=== PATIENT | male | born 1965 | race Hispanic/Latino ===

== ENCOUNTER 2018-07-21 15:03 | Inpatient (IN) | payer MEDICAID ==
[2018-07-21 15:04] VITALS: BMI 23.6
[2018-07-21 16:18] LABS: BASO % 0.3 % (0.0-2.0); EOS # 0.1 K/uL (0.0-0.7); EOS % 0.5 % (0.0-4.0); HEMOGLOBIN 13.6 g/dL (12.0-18.0); LYMPH % 8.3 % (20.0-40.0); MEAN CELL VOLUME 93.8 fL (80.0-94.0); MEAN CORPUSCULAR HEMOGLOBIN 31.4 pg (27.0-31.0); MEAN CORPUSCULAR HGB CONC 33.5 g/dL (33.0-37.0); MEAN PLATELET VOLUME 7.5 fL (7.2-11.7); MONO # 1.3 K/uL (0.0-0.8); MONO % 10.9 % (0.0-10.0); NEUT # 9.3 K/uL (1.8-7.0); NRBC % 0.1 % (0.0-2.0); PLATELET COUNT 295 K/uL (130-400); RBC 4.32 Mil/uL (4.40-5.90); RED CELL DISTRIBUTION WIDTH 14.1 % (11.5-14.5); WHITE BLOOD COUNT 11.6 K/uL (4.8-10.8)
[2018-07-21 16:37] LABS: URINE BILIRUBIN NEGATIVE (NEGATIVE); URINE BLOOD NEGATIVE (NEGATIVE); URINE CLARITY Clear (Clear); URINE COLOR Yellow (YELLOW); URINE GLUCOSE (UA) NORMAL (Normal); URINE LEUKOCYTE ESTERASE NEG Leu/uL (Negative); URINE PROTEIN NEGATIVE (NEGATIVE); URINE UROBILINOGEN NORMAL mg/dL (0.2-1.0)
[2018-07-21 17:01] LABS: ALB/GLOB RATIO 1.5 (1.0-2.1); ALBUMIN 4.1 g/dL (3.5-5.0); ALT/SGPT 21 U/L (21-72); AST/SGOT 34 U/L (17-59); BLOOD UREA NITROGEN 15 mg/dL (9-20); CALCIUM 9.2 mg/dl (8.6-10.4); GFR NON-AFRICAN AMERICAN > 60
[2018-07-21 17:12] LABS: BARBITURATES, UR NEGATIVE (NEGATIVE); BENZODIAZEPINES, UR NEGATIVE (NEGATIVE); OPIATES, UR NEGATIVE (NEGATIVE); PHENCYCLIDINE, UR NEGATIVE (NEGATIVE)
--- NOTE | 2018-07-21 17:14 | C.PDOC ---
History Of Present Illness Patient is a 52 year old male who presents to the ED requesting detox from alcohol. Patient reports that he was in rehab for 4 months and after he got out he was drinking continuously for the past 2 days and stopped this morning. He reports that he is in withdrawal, shaky and anxious and having suicidal ideation. Patient also states that for the past 6 or 7 years he has had occasional numbness on the left side of his face. He denies HI or other medical complaints at the present moment. Time Seen by Provider: 07/21/18 15:24 Chief Complaint (Nursing): Substance Abuse History Per: Patient History/Exam Limitations: no limitations Current Symptoms Are (Timing): Still Present Suicide/Self Injury Attempted (Context): None Modifying Factor(s): Alcohol Associated Symptoms: Suicidal Thoughts Involuntary Hold By: None Recent travel outside of the [place]: No Additional History Per: Patient Past Medical History Reviewed: Historical Data, Nursing Documentation, Vital Signs Vital Signs: Last Vital Signs Temp 98.1 F 07/21/18 15:12 Pulse 77 07/21/18 16:34 Resp 18 07/21/18 16:34 BP 206/118 H 07/21/18 16:34 Pulse Ox 100 07/21/18 16:34 - Medical History PMH: Anxiety, Depression, Fractures (Right hip/hand and facial fracture due to fall), HTN, Pneumonia, TIA Denies: Alzheimer's Disease, Anemia, Arthritis, Asthma, Bipolar Disorder, Bronchitis, Cardia Arrhythmia, CHF, COPD, Crohn's Disease, Dementia, Diverticulitis, Emphysema, Fibromyalgia, Gastrointestinal Ulcer, Gall Bladder Disease, HIV, Hypercholesterolemia, Hyperthyroidism, Hypothyroidism, Kidney Stones, Migraine, Mitral Valve Prolapse, Osteoporosis, Pancreatitis, Paranoia, Parkinson's Disease, Peripheral Edema, Post Traumatic Stress Disorder, Chronic Kidney Disease, Schizophrenia, Seizures, Sickle Cell Disease, Sexually T ransmitted Disease, Sleep Apnea Surgical History: Denies: Appendectomy, Cholecystectomy, Coronary Stent, Pacemaker - [facility] Procedures (02/03/18) INJECT/INFUSE NEC (09/25/12) TETANUS TOXOID ADMINIST (04/01/04) VACCINATION NEC (11/23/13) Family History: States: No Known Family Hx - Social History Hx Tobacco Use: No Hx Alcohol Use: Yes (DRINKS DAILY PINT OF VODKA.LAST DRANK YESTERDAY PINT OF VODKA) Hx Substance Use: No - Immunization History Hx Tetanus Toxoid Vaccination: No Hx Influenza Vaccination: Yes Hx Pneumococcal Vaccination: No Review Of Systems Constitutional: Positive for: Other (tremors, anxious ). Negative for: Fever Cardiovascular: Negative for: Chest Pain Respiratory: Negative for: Shortness of Breath Gastrointestinal: Negative for: Vomiting, Abdominal Pain Neurological: Positive for: Other (facial numbness for the past 6/7 years) Psych: Positive for: Suicidal ideation. Negative for: Other (homicidal ideation or hallucinations ) Physical Exam - Physical Exam Appears: Non-toxic, Other ( hand tremors ) Skin: Diaphoretic Head: Atraumatic, Normacephalic Eye(s): bilateral: PERRL, EOMI Tongue: Other (tongue fasciculation) Chest: Symmetrical, No Deformity Cardiovascular: Rhythm Regular, No Murmur Respiratory: Normal Breath Sounds, No Rales, No Rhonchi, No Wheezing Gastrointestinal/Abdominal: Soft, No Tenderness Extremity: Normal ROM Neurological/Psych: Other (awake and alert) ED Course And Treatment - Laboratory Results Result Diagrams: 07/21/18 16:12 07/21/18 16:12 Lab Results: Total Bilirubin 1.0 mg/dL (0.2-1.3) 07/21/18 16:12 AST 34 U/L (17-59) 07/21/18 16:12 ALT 21 U/L (21-72) 07/21/18 16:12 Alkaline Phosphatase 76 U/L (38-126) 07/21/18 16:12 Total Protein 6.7 g/dL (6.3-8.3) 07/21/18 16:12 Albumin 4.1 g/dL (3.5-5.0) 07/21/18 16:12 Globulin 2.6 gm/dL (2.2-3.9) 07/21/18 16:12 Albumin/Globulin Ratio 1.5 (1.0-2.1) 07/21/18 16:12 ECG: Interpreted By Me, Viewed By Me ECG Rhythm: Sinus Rhythm Interpretation Of ECG: Normal axis, normals intervals, no ST elevations Rate From EC O2 Sat by Pulse Oximetry: 100 (on RA) Pulse Ox Interpretation: Normal Medical Decision Making Medical Decision Making: Patient given 2mg ativan PO for EtOH withdrawal symptoms. Patient medically cleared and evaluated by crisis. Accepted by Dr. Martell for psych admission, dx: depression. Home doses of amlodipine and lisinopril given for HTN. On re-eval BP 138/85. Disposition - Disposition Disposition Time: 21:04 Condition: STABLE - Clinical Impression Clinical Impression: Alcohol abuse, Depression - Scribe Statement The provider has reviewed the documentation as recorded by the Jemalibobi Jean All medical record entries made by the Jemalibe were at my direction and personally dictated by me. I have reviewed the chart and agree that the record accurately reflects my personal performance of the history, physical exam, medical decision making, and the department course for this patient. I have also personally directed, reviewed, and agree with the discharge instructions and disposition.
[2018-07-21 20:08] LABS: BANDS 1 % (0-2); LYMPHOCYTE 8 % (20-40); MONOCYTE 10 % (0-10); NEUTROPHIL 81 % (50-75); PLATELET ESTIMATE NORMAL (NORMAL); TOTAL CELLS COUNTED 100
[2018-07-21] MEDS ORDERED: Aluminum Hydroxide/Magnesium Hydroxide Susp (30 mL) PO PRN (22:12)
--- NOTE | 2018-07-21 23:10 | PCM.BM ---
<Janel Ramirez - Last Filed: 07/21/18 23:07> Treatment Plan Problems - Problems identified on initial assessmt Knowledge deficit : Alcohol Use Date Initiated: 07/21/18 Time Initiated: 21:30 Assessment reference: NA Status: Active Suicidal Ideation Date Initiated: 07/21/18 Time Initiated: 21:30 Assessment reference: NA Status: Active Treatment assets and liabiliti Patient Assests: ADL independent Patient Liabilities: substance abuse (Alcohol), medical problems (Hypertension) - Milieu Protocol Maintain good personal hygiene: daily Encourage regular showers, daily Remind patient to perform daily oral care, every shift Assist patient to perform ADL's Conduct patient checks and document Observation sheet: Q15 minutes Maintain personal safety: every shift Educate patient to report safety concerns to staff, every shift Monitor environment for contraband/sharps Medication safety: Monitor for expected outcome, potential side effects: every shift, Assess barriers to learning: every shift, Assess readiness for medication education: every shift <Maodnna Ozuna - Last Filed: 07/22/18 12:54> Family Contact Family involvement: Patient does not wish Family/SO involvement Family contact: Patient declines to allow family contact at present - Goals for Treatment Patient goals for treatment: "I want to go to rehab." Discharge/Continuing Care - Education Needs Education Needs: Patient Medication, Patient Diagnosis/Disease Process, Patient Coping Skills, Patient Placement options, Patient Community resources - Discharge Discharge Criteria: Free of Suicidal thoughts, Normal sleep pattern, Ability to care for self, No longer exhibiting s/s of withdrawal, Reduction of target sym ptoms Discharge to:: Substance Abuse Rehab - Treatment Team Participation Discussed with Family/SO: No Was Patient/Family/SO present at Treatment Team Meeting: Yes <Eduardo Camilo - Last Filed: 07/28/18 22:23> - Diagnosis (1) Major depressive disorder, recurrent, severe with psychotic features Status: Acute Interventions: 07/28/18 22:23 * Assess/adjust medications daily and /or as needed * See patient on an individual basis 7x/week to assess level of manic behaviors and stability * Discuss risks, benefits, side effects and alternatives of medications (2) Alcohol use disorder, severe, dependence Status: Acute Interventions: 07/28/18 22:23 * Assess 7x/week regarding severity of withdrawal * Educate regarding risks, benefits, side effects and alternatives of medications * Use Motivational Interviewing for abstinence * Use CBT for relapse prevention * Medication management for withdrawal symptoms * Encourage medication assisted treatment
[2018-07-22] MEDS: Multiple Vitamins Tab PO SCH (09:26)
--- NOTE | 2018-07-22 10:08 | PCM.PSYCH ---
Initial Psychiatric Evaluation - Initial Psychiatric Evaluation Type of Admission: Voluntary Legal Status: Capacity Chief Complaint (in patient's own words): I was feeling depressed and suicidal History of Present Illness and Precipitating Events: Patient is a 52 y/o single male, currently homeless, used to live with ex- in [facility], came to the [facility] because of depressed mood, auditory hallucinations and suicidal ideation. Patient denies any past history of any inpatient psychiatric hospitalizations and denies any history of follow-up with a psychiatrist. He was brought in to the ED by friend from , after going on a " two day drinking binge", per patient. States that he drank 6-10 pints of vodka yesterday. Pt has been to rehab in the past and was recently discharged from a facility in [facility]. States that he has been in rehab for the past 4 months. He states that he went home to [place] for work after being discharged from the rehab facility and then relapsed. When leaving the rehab facility, pt states that he had plans to reconcile with his life and resume work, " but those plans went out of the window" one he got there. Reports that he felt paranoid at work, stating that he felt people were "trying to get even with him on the job. " While on the binge, he lost his wallet, bag, and glasses. States that last night he had " shakes" after not drinking. He has been felling down an depressed for a few days, with last night and this morning being the worst.Reports hearing voices telling him to hurt himself and that he would be better off . He reports feeling like he has a "dark cloud" over his head and following him. Pt also reports seeing shadows. States that he only time that he is happy is when he is asleep.Reports getting into fights in the past, but states that he hasn't fought with anyone for one month. He reports depressed mood, feelings of hopelessness, helplessness and worthlessness. He reports poor sleep and poor appetite. She reports withdrawal symptoms including shakes, anxiety, headaches and sweating. He reports auditory and visual hallucinations and suicidal ideation, however he denies any homicidal ideation. Past medical history HTN Current Medications: Active Medications Generic Name Dose Route Start Last Admin Trade Name Freq PRN Reason Stop Dose Admin Al Hydrox/Mg Hydrox/Simethicone 30 ml 07/21/18 22:12 Maalox 30 Ml PO TID PRN Indigestion / Heartburn Amlodipine Besylate 10 mg 07/22/18 10:00 07/22/18 09:26 Norvasc PO 10 mg DAILY WENDY Administration Chlordiazepoxide 25 mg 07/22/18 00:00 07/22/18 06:22 Librium PO 07/25/18 23:59 25 mg Q6 WENDY Administration Taper Chlordiazepoxide 25 mg 07/21/18 22:11 07/21/18 22:36 Librium PO 25 mg Q4H PRN Administration Alcohol Withdrawal Clonidine HCl 0.1 mg 07/21/18 22:11 Catapres PO Q4H PRN Symptoms of alcohol withdrawl Dicyclomine HCl 10 mg 07/21/18 22:12 Bentyl PO Q6 PRN Muscle spasm Folic Acid 1 mg 07/22/18 10:00 07/22/18 09:26 Folic Acid PO 1 mg DAILY WENDY Administration Lisinopril 40 mg 07/22/18 10:00 07/22/18 09:25 Zestril PO 40 mg DAILY WENDY Administration Loperamide HCl 2 mg 07/21/18 22:12 Imodium PO Q8 PRN Diarrhea Multivitamins 1 tab 07/22/18 10:00 07/22/18 09:26 Hexavitamin PO 1 tab DAILY WENDY Administration Ondansetron HCl 4 mg 07/21/18 22:12 Zofran Tab PO Q8 PRN Nausea/Vomiting Pneumococcal Polyvalent Vaccine 0.5 ml 07/24/18 22:00 Pneumovax 23 Vaccine IM 07/24/18 22:01 .ONCE ONE Pseudoephedrine HCl 60 mg 07/21/18 22:12 Sudafed Tab PO QID PRN Nasal/Sinus Congestion Thiamine HCl 100 mg 07/22/18 10:00 07/22/18 09:26 Vitamin B1 Tab PO 100 mg DAILY WENDY Administration Trazodone HCl 50 mg 07/21/18 22:11 07/21/18 22:37 Desyrel PO 50 mg HS PRN Administration Insomnia Past Psychiatric History - Past Psychiatric History Previous Treatment History: None Pertinent Medical Hx (Current Medical&Sleep Prob, Allergies): Allergies Allergy/AdvReac Type Severity Reaction Status Date / Time coconut Allergy RASH Verified 07/21/18 15:20 coconut oil Allergy RASH Verified 07/21/18 15:20 cranberry Allergy SWELLING Verified 07/21/18 15:20 Lisinopril [Zestril] 40 mg PO DAILY 07/21/18 amLODIPine [Norvasc] 10 mg PO DAILY 07/21/18 Review of Systems - Review of Systems All systems: reviewed and no additional remarkable complaints except - Psychiatric Psychiatric: Anxiety, Auditory Hallucinations, Irritability, Suicidal Ideation Mental Status Examination - Personal Presentation Personal Presentation: Looks stated age - Affect Affect: Constricted, Depressed - Motor Activity Motor Activity: Psychomotor Retardation - Reliability in Providing Information Reliability in Providing Information: Poor, due to altered mood - Speech Speech: Organized - Mood Mood: Depressed, Anxious - Formal Thought Process Formal Thought Process: Hallucinations, Delusions, Paranoia, Loosening of associations - Hallucinations/Delusions Hallucinations: Visual, Auditory Delusions: Persecution - Obsessions/Compulsions Obsessions: No Compulsions: No - Cognitive Functions Orientation: Person, Place, Situation, Time Sensorium: Alert Attention/Concentration: Attentive Abstract Thinking: [place] Estimate of Intelligence: Below average Judgement: Imparied, as evidence by: Poor judgement, Imparied, as evidence by: Lack of insight into illness - Risk Risk: Suicidal, Withdrawal, Diminished functioning - Limitations Limitations: Living alone DSM 5 DX - DSM 5 DSM 5 Diagnosis: Major depressive disorder recurrent severe with psychotic features Alcohol use disorder severe Alcohol withdrawal - Recommended/Plan of Treatment Treatment Recommendations and Plan of Treatment: Major depressive disorder recurrent severe with psychotic features Alcohol use disorder severe Alcohol withdrawal HTN CBT Separation Supportive therapy and group therapy Trazodone for insomnia Zoloft for depression Librium taper Withdrawal medications including thiamine/multivitamin/folic acid/Zofran. Neurontin for augmentation Seroquel for sleep Continue high blood pressure medications
--- NOTE | 2018-07-22 17:14 | CARD ---
APPROVED REPORT Date of service: 07/21/2018 EKG Measurement Heart [id number] <Conclusion> Normal sinus rhythm Normal ECG
[2018-07-23] MEDS: Multiple Vitamins Tab PO SCH (09:21)
--- NOTE | 2018-07-23 13:33 | PCM.PYCHPN ---
Psychiatric Progress Note - Psychiatric Progress Note Patient seen today, length of contact: 15 min Patient Chief Complaint: I was feeling depressed and suicidal Problems Identified/Issues Discussed: Patient was seen and evaluated, chart reviewed and discussed the staff. Patient still reports depressed mood, at times feelings of hopelessness and helplessness. He still reports poor sleep and poor appetite. He reports some improvement in the voices and paranoia. As per staff he remained isolative and withdrawn and confined to his room. He reports withdrawal symptoms from drinking including shakes, anxiety, headaches and sweating. He is taking medication but denies any side effects. Symptoms are improving gradually but he needs to schedule for further stabilization. Supportive therapy was provided. Medication Change: Yes Medical Record Reviewed: Yes Mental Status Examination - Cognitive Function Orientation: Person, Place, Situation, Time Memory: Intact Attention: WNL Concentration: Poor Association: WNL Fund of Knowledge: Poor - Mood Mood: Depressed, Anxious - Affect Affect: Constricted, Depressed - Speech Speech: Soft - Formal Thought Process Formal Thought Process: Delusions, Paranoia, Loosening of associations - Suicidal Ideation Suicidal Ideation: No - Homicidal Ideation Homicidal Ideation: No Goal/Treatment Plan - Goal/Treatment Plan Need for Continued Stay: Remain at risks for inpatient hospitalization Progress Toward Problem(s) and Goals/Treatment Plan: Major depressive disorder recurrent severe with psychotic features Alcohol use disorder severe Alcohol withdrawal HTN CBT Separation Supportive therapy and group therapy Trazodone for insomnia Zoloft for depression Librium taper Withdrawal medications including thiamine/multivitamin/folic acid/Zofran. Neurontin for augmentation Seroquel for sleep Continue high blood pressure medications
[2018-07-24] MEDS: Multiple Vitamins Tab PO SCH (09:19)
--- NOTE | 2018-07-24 10:44 | PCM.PYCHPN ---
Psychiatric Progress Note - Psychiatric Progress Note Patient seen today, length of contact: 15 min Patient Chief Complaint: I m feeling depressed.' Problems Identified/Issues Discussed: Patient was seen and evaluated, chart reviewed and discussed the staff. As per staff he remained isolative and withdrawn and confined to his room. Patient still reports depressed mood, poor sleep and poor appetite. He reports some improvement in the voices and paranoia. He reports some improvement in the withdrawal symptoms but still reports shakes, anxiety, headaches and sweating. He is taking medication but denies any side effects. Symptoms are improving gradually but he needs to schedule for further stabilization. Supportive therapy was provided. Medication Change: Yes Medical Record Reviewed: Yes Mental Status Examination - Cognitive Function Orientation: Person, Place, Situation, Time Memory: Intact Attention: WNL Concentration: Poor Association: WNL Fund of Knowledge: Poor - Mood Mood: Depressed, Anxious - Affect Affect: Constricted, Depressed - Speech Speech: Soft - Formal Thought Process Formal Thought Process: Delusions, Paranoia, Loosening of associations - Suicidal Ideation Suicidal Ideation: No - Homicidal Ideation Homicidal Ideation: No Goal/Treatment Plan - Goal/Treatment Plan Need for Continued Stay: Remain at risks for inpatient hospitalization Progress Toward Problem(s) and Goals/Treatment Plan: Major depressive disorder recurrent severe with psychotic features Alcohol use disorder severe Alcohol withdrawal HTN CBT Separation Supportive therapy and group therapy Trazodone for insomnia Zoloft for depression Librium taper Withdrawal medications including thiamine/multivitamin/folic acid/Zofran. Neurontin for augmentation Seroquel for sleep Continue high blood pressure medications
[2018-07-24] MEDS ORDERED: Pneumococcal 23-Valent Vaccine IM ONE (22:00)
[2018-07-25] MEDS: Multiple Vitamins Tab PO SCH (09:51)
--- NOTE | 2018-07-25 23:04 | PCM.PYCHPN ---
Psychiatric Progress Note - Psychiatric Progress Note Patient seen today, length of contact: 15 min Patient Chief Complaint: I still feel depressed and isolated. Problems Identified/Issues Discussed: Patient seen, chart reviewed, case discussed with the staff. Issues related to illness and treatment were discussed with the patient and staff. Reported compliant with treatment with no adverse effect. Tolerating treatment very well. Patient reported to still not feeling better, still feels depressed, isolative and staying in his room. Also reported having passive suicidal ideations but feels safe in the hospital. Affect is appropriate. Supportive therapy was provided. Aftercare discussed with the patient. Denied any delusions, auditory or visual hallucinations, no suicidal ideations or homicidal ideations at the time of evaluation. Medical Problems: Hypertension Diagnostic Results: Reviewed Medication Change: No Medical Record Reviewed: Yes Mental Status Examination - Cognitive Function Orientation: Person, Place, Situation, Time Memory: Intact Attention: WNL Concentration: WNL Association: WN Fund of Knowledge: [facility] Decription of patient's judgement and insights: Fair - Mood Mood: Depressed - Affect Affect: Depressed - Speech Speech: Soft - Formal Thought Process Formal Thought Process: No Impairment Psychotic Thoughts and Behaviors: None - Suicidal Ideation Suicidal Ideation: No - Homicidal Ideation Homicidal Ideation: No Goal/Treatment Plan - Goal/Treatment Plan Need for Continued Stay: Remain at risks for inpatient hospitalization, Discharge may exacerbated symptoms, Severe functional impairment Progress Toward Problem(s) and Goals/Treatment Plan: Patient education. Supportive therapy. CBT for relapse prevention. WA for abstinence. Continue treatment as before. Estimated Date of D/C: 07/29/18 - Smoking Cessation Smoking Cessation Initiated: No
[2018-07-26] MEDS: Multiple Vitamins Tab PO SCH (09:40)
[2018-07-27] MEDS: Multiple Vitamins Tab PO SCH (09:13)
--- NOTE | 2018-07-27 21:05 | PCM.PYCHPN ---
Psychiatric Progress Note - Psychiatric Progress Note Patient seen today, length of contact: 15 min Patient Chief Complaint: I still feel depressed and isolative. Problems Identified/Issues Discussed: Patient seen, chart reviewed, case discussed with the staff. Issues related to illness and treatment were discussed with the patient and staff. Reported compliant with treatment with no adverse effect. Tolerating treatment very well. Patient reported still not feeling better, still feels depressed, isolative and staying in his room. Also reported having passive suicidal ideations but feels safe in the hospital. Affect is appropriate. Supportive therapy was provided. Aftercare discussed with the patient. Denied any delusions, auditory or visual hallucinations, no suicidal ideations or homicidal ideations at the time of evaluation. Medical Problems: Hypertension Diagnostic Results: Reviewed Medication Change: No Medical Record Reviewed: Yes Mental Status Examination - Cognitive Function Orientation: Person, Place, Situation, Time Memory: Intact Attention: WNL Concentration: WNL Association: WN Fund of Knowledge: [facility] Decription of patient's judgement and insights: Fair - Mood Mood: Depressed - Affect Affect: Depressed - Speech Speech: Soft - Formal Thought Process Formal Thought Process: No Impairment Psychotic Thoughts and Behaviors: None - Suicidal Ideation Suicidal Ideation: No - Homicidal Ideation Homicidal Ideation: No Goal/Treatment Plan - Goal/Treatment Plan Need for Continued Stay: Remain at risks for inpatient hospitalization, Discharge may exacerbated symptoms, Severe functional impairment Progress Toward Problem(s) and Goals/Treatment Plan: Patient education. Supportive therapy. CBT for relapse prevention. AL for abstinence. Continue treatment as before. Estimated Date of D/C: 07/29/18 - Smoking Cessation Smoking Cessation Initiated: No
[2018-07-28 06:23] VITALS: O2SAT 95
[2018-07-28] MEDS: Multiple Vitamins Tab PO SCH (09:21)
--- NOTE | 2018-07-28 20:06 | PCM.PYCHPN ---
Psychiatric Progress Note - Psychiatric Progress Note Patient seen today, length of contact: 15 min Patient Chief Complaint: I am still not feeling better. But I feel safe here. Problems Identified/Issues Discussed: Patient seen, chart reviewed, case discussed with the staff. Issues related to illness and treatment were discussed with the patient and staff. Reported compliant with treatment with no adverse effect. Tolerating treatment very well. Patient reported still not feeling better, still feels depressed, isolative and staying in his room. Also reported still having passive suicidal ideations but feels safe in the hospital. Will change his medications. Will discontinue Seroquel and sertraline. Will start Zyprexa 10 mg daily and fluoxetine 10 mg daily. Patient understood and agreed. Affect is appropriate. Patient needs more time for stabilization. Supportive therapy was provided. Aftercare discussed with the patient. Denied any delusions, auditory or visual hallucinations, no suicidal ideations or homicidal ideations at the time of evaluation. Medical Problems: Hypertension Diagnostic Results: Reviewed Medication Change: Yes (Discontinue Seroquel and sertraline. Started Zyprexa and fluoxetine.) Medical Record Reviewed: Yes Mental Status Examination - Cognitive Function Orientation: Person, Place, Situation, Time Memory: Intact Attention: WNL Concentration: WNL Association: WN Fund of Knowledge: [facility] Decription of patient's judgement and insights: Fair - Mood Mood: Depressed - Affect Affect: Depressed - Speech Speech: Soft - Formal Thought Process Formal Thought Process: No Impairment Psychotic Thoughts and Behaviors: None - Suicidal Ideation Suicidal Ideation: No - Homicidal Ideation Homicidal Ideation: No Goal/Treatment Plan - Goal/Treatment Plan Need for Continued Stay: Remain at risks for inpatient hospitalization, Discharge may exacerbated symptoms, Severe functional impairment Progress Toward Problem(s) and Goals/Treatment Plan: Patient education. Supportive therapy. CBT for relapse prevention. MD for abstinence. Will discontinue Seroquel and sertraline. Will start Zyprexa and fluoxetine. Continue treatment as before. Estimated Date of D/C: 07/31/18 - Smoking Cessation Smoking Cessation Initiated: No
[2018-07-29] MEDS: Multiple Vitamins Tab PO SCH (09:39)
--- NOTE | 2018-07-29 23:30 | PCM.PYCHPN ---
Psychiatric Progress Note - Psychiatric Progress Note Patient seen today, length of contact: 15 min Patient Chief Complaint: I am feeling little better. Problems Identified/Issues Discussed: Patient seen, chart reviewed, case discussed with the staff. Issues related to illness and treatment were discussed with the patient and staff. Reported compliant with treatment with no adverse effect. Tolerating treatment very well. Patient reported feeling little better. Also reported still having passive suicidal ideations at times but feels safe in the hospital. Mood reported as depressed. Affect is appropriate. Patient needs more time for stabilization. Supportive therapy was provided. Aftercare discussed with the patient. Denied any delusions, auditory or visual hallucinations, no suicidal ideations or homicidal ideations at the time of evaluation. Medical Problems: Hypertension Diagnostic Results: Reviewed DSM 5 Symptoms Update: Some improvement with treatment. Medication Change: No Medical Record Reviewed: Yes Mental Status Examination - Cognitive Function Orientation: Person, Place, Situation, Time Memory: Intact Attention: WNL Concentration: WNL Association: WNL Fund of Knowledge: WN Decription of patient's judgement and insights: Fair - Mood Mood: Depressed - Affect Affect: Depressed - Speech Speech: Soft - Formal Thought Process Formal Thought Process: No Impairment Psychotic Thoughts and Behaviors: None - Suicidal Ideation Suicidal Ideation: No - Homicidal Ideation Homicidal Ideation: No Goal/Treatment Plan - Goal/Treatment Plan Need for Continued Stay: Remain at risks for inpatient hospitalization, Discharge may exacerbated symptoms, Severe functional impairment Progress Toward Problem(s) and Goals/Treatment Plan: Patient education. Supportive therapy. CBT for relapse prevention. TN for abstinence. Continue treatment as before. Patient will go to [facility] for follow-up care after discharge from the hospital. Estimated Date of D/C: 07/31/18 - Smoking Cessation Smoking Cessation Initiated: No
[2018-07-30] MEDS: Multiple Vitamins Tab PO SCH (09:03)
--- NOTE | 2018-07-30 17:08 | PCM.PYCHPN ---
Psychiatric Progress Note - Psychiatric Progress Note Patient seen today, length of contact: 15 min Patient Chief Complaint: I am feeling better. Problems Identified/Issues Discussed: Patient seen, chart reviewed, case discussed with the staff. Issues related to illness and treatment were discussed with the patient and staff. Reported compliant with treatment with no adverse effect. Tolerating treatment very well. Patient reported feeling better. Reported no suicidal ideations. Mood reported as okay. Affect is appropriate. Patient needs more time for stabilization. Supportive therapy was provided. Aftercare discussed with the patient. Denied any delusions, auditory or visual hallucinations, no suicidal ideations or homicidal ideations at the time of evaluation. Medical Problems: Hypertension Diagnostic Results: Reviewed DSM 5 Symptoms Update: Some improvement with treatment. Medication Change: No Medical Record Reviewed: Yes Mental Status Examination - Cognitive Function Orientation: Person, Place, Situation, Time Memory: Intact Attention: WNL Concentration: WNL Association: WN Fund of Knowledge: [facility] Decription of patient's judgement and insights: Fair - Mood Mood: Depressed (Less than before) - Affect Affect: Depressed - Speech Speech: Soft - Formal Thought Process Formal Thought Process: No Impairment Psychotic Thoughts and Behaviors: None - Suicidal Ideation Suicidal Ideation: No - Homicidal Ideation Homicidal Ideation: No Goal/Treatment Plan - Goal/Treatment Plan Need for Continued Stay: Remain at risks for inpatient hospitalization, Discharge may exacerbated symptoms, Severe functional impairment Progress Toward Problem(s) and Goals/Treatment Plan: Patient education. Supportive therapy. CBT for relapse prevention. WA for abstinence. Continue treatment as before. Patient will go to [facility] for follow-up care after discharge from the hospital. Estimated Date of D/C: 08/03/18 - Smoking Cessation Smoking Cessation Initiated: No
[2018-07-31] MEDS: Multiple Vitamins Tab PO SCH (09:20)
--- NOTE | 2018-07-31 22:31 | PCM.PYCHPN ---
Psychiatric Progress Note - Psychiatric Progress Note Patient seen today, length of contact: 15 min Patient Chief Complaint: I am feeling better after the change in medicine. Problems Identified/Issues Discussed: Patient seen, chart reviewed, case discussed with the staff. Issues related to illness and treatment were discussed with the patient and staff. Reported compliant with treatment with no adverse effect. Tolerating treatment very well. Patient reported feeling better especially after the change in his medications. Reported no suicidal ideations. Mood reported as okay. Affect is appropriate. Patient needs more time for stabilization. Supportive therapy was provided. Aftercare discussed with the patient. Denied any delusions, auditory or visual hallucinations, no suicidal ideations or homicidal ideations at the time of evaluation. Medical Problems: Hypertension Diagnostic Results: Reviewed DSM 5 Symptoms Update: Some improvement with treatment. Medication Change: No Medical Record Reviewed: Yes Mental Status Examination - Cognitive Function Orientation: Person, Place, Situation, Time Memory: Intact Attention: WNL Concentration: WNL Association: WNL Fund of Knowledge: WNL Decription of patient's judgement and insights: Fair - Mood Mood: Depressed (Less than before) - Affect Affect: Depressed - Speech Speech: Soft - Formal Thought Process Formal Thought Process: No Impairment Psychotic Thoughts and Behaviors: None - Suicidal Ideation Suicidal Ideation: No - Homicidal Ideation Homicidal Ideation: No Goal/Treatment Plan - Goal/Treatment Plan Need for Continued Stay: Remain at risks for inpatient hospitalization, Discharge may exacerbated symptoms, Severe functional impairment Progress Toward Problem(s) and Goals/Treatment Plan: Patient education. Supportive therapy. CBT for relapse prevention. TN for abstinence. Continue treatment as before. Patient will go to [facility] for follow-up care after discharge from the hospital. Estimated Date of D/C: 08/03/18 - Smoking Cessation Smoking Cessation Initiated: No
[2018-08-01] MEDS: Multiple Vitamins Tab PO SCH (09:11)
--- NOTE | 2018-08-01 23:43 | PCM.PYCHPN ---
Psychiatric Progress Note - Psychiatric Progress Note Patient seen today, length of contact: 15 min Medication Change: No Medical Record Reviewed: Yes Mental Status Examination - Cognitive Function Orientation: Person, Place, Situation, Time Memory: Intact Attention: WNL Concentration: WNL Association: WNL Fund of Knowledge: WNL - Mood Mood: Depressed (Less than before) - Affect Affect: Depressed - Speech Speech: Soft - Formal Thought Process Formal Thought Process: No Impairment - Suicidal Ideation Suicidal Ideation: No - Homicidal Ideation Homicidal Ideation: No Goal/Treatment Plan - Goal/Treatment Plan Need for Continued Stay: Remain at risks for inpatient hospitalization, Discharge may exacerbated symptoms, Severe functional impairment Estimated Date of D/C: 08/03/18
[2018-08-02] MEDS: Multiple Vitamins Tab PO SCH (09:14)
[2018-08-03 06:42] VITALS: BP 123/84; PULSE 65; RESP 18; TEMP 98.5
[2018-08-03] MEDS: Multiple Vitamins Tab PO SCH (09:03)
--- NOTE | 2018-08-03 09:28 | PCM.PYCHDC ---
Mental Status Examination - Mental Status Examination Orientation: Person, Place, Situation, Time Memory: Intact Mood: Neutral Affect: Other (Appropriate) Speech: Appropriate Attention: WNL Concentration: WNL Association: WNL Fund of Knowledge: WNL Formal Thought Process: No Impairment Description of patient's judgement and insight: Fair Psychotic Thoughts and Behaviors: None Suicidal Ideation: No Current Homicidal Ideation?: No Discharge Summary - Discharge Note Reason for Hospitalization: Major depressive disorder recurrent severe with psychotic features Alcohol use disorder severe Alcohol withdrawal Laboratory Data: Reviewed Consultations:: List each consultation separately and include: 1. Reason for request. 2. Findings. 3. Follow-up Summary of Hospital Course include:: 1. Description of specific treatment plan utilized for patients during their course of treatmen. 2. Summarize the time- course for resolution of acute symptoms and/or regressed behaviors. 3. Describe issues identified and worked on during hospitalization. 4. Describe medication utilized. 5. Describe medical problems identified and treated. 6. Reassessment of suicide risk Summary of Hospital Course: Patient is a 52 y/o single male, currently homeless, used to live with ex- in [facility], came to the [facility] because of depressed mood, auditory hallucinations and suicidal ideation. Patient denies any past history of any inpatient psychiatric hospitalizations and denies any history of follow-up with a psychiatrist. He was brought in to the ED by friend from , after going on a " two day drinking binge", per patient. States that he drank 6-10 pints of vodka yesterday. Pt has been to rehab in the past and was recently discharged from a facility in [facility]. States that he has been in rehab for the past 4 months. He states that he went home to [place] for work after being discharged from the rehab facility and then relapsed. When leaving the rehab facility, pt states that he had plans to reconcile with his life and resume work, " but those plans went out of the window" one he got there. Reports that he felt paranoid at work, stating that he felt people were "trying to get even with him on the job. " While on the binge, he lost his wallet, bag, and glasses. States that last night he had " shakes" after not drinking. He has been felling down an depressed for a few days, with last night and this morning being the worst.Reports hearing voices telling him to hurt himself and that he would be better off . He reports feeling like he has a "dark cloud" over his head and following him. Pt also reports seeing shadows. States that he only time that he is happy is when he is asleep.Reports getting into fights in the past, but states that he hasn't fought with anyone for one month. He reports depressed mood, feelings of hopelessness, helplessness and worthlessness. He reports poor sleep and poor appetite. She reports withdrawal symptoms including shakes, anxiety, headaches and sweating. He reports auditory and visual hallucinations and suicidal ideation, however he denies any homicidal ideation. During his stay in the hospital patient was treated with Librium taper for alcohol withdrawal symptoms, sertraline and Seroquel. Patient was attending groups and other activities on the unit but still complaining of depression and no improvement in his condition. Letter his sertraline and Seroquel were discontinued and was started on fluoxetine and olanzapine. With above change, patient started feeling better. Today patient was stable, no depression, no withdrawal symptoms. Patient was stable and ready for discharge from the hospital. At the time of evaluation and discharge, patient was awake, alert and oriented x3, had no delusions, no auditory or visual hallucinations, no suicidal ideations or homicidal ideations. Patient was discharged in a stable condition. - Diagnosis (1) Major depressive disorder, recurrent, severe with psychotic features Status: Acute (2) Alcohol use disorder, severe, dependence Status: Acute - Final Diagnosis (DSM 5) Condition upon Discharge: STABLE Disposition: HOME/ ROUTINE Follow-up Treatment Plan: Patient will go to [facility] for follow-up care after discharge from the hospital. Prescriptions/Medication Reconciliation: FLUoxetine [Prozac] 10 mg PO DAILY #30 cap Gabapentin [Neurontin] 300 mg PO BID #60 cap OLANZapine [Zyprexa] 10 mg PO DAILY #30 tab traZODone [Desyrel] 50 mg PO HS PRN #30 tab PRN Reason: Insomnia - Smoking Cessation Smoking Cessation Medication prescribed: No - Antipsychotic Medications Pt discharged on 2 or more routine antipsychotic medications: No
== END 2018-08-03 10:41 | disposition home or self-care (01) | DRG 430 ==
LOC: C.ER 15:03 → C.5E 21:04
PROVIDERS: ADMIT Psychiatry & Neurology Psychiatry; ATTEND Psychiatry & Neurology Psychiatry
PROC: GZ56ZZZ Individual Psychotherapy, Supportive (ICD-10-PCS; principal; 2018-07-21)
DX: F33.3 Major depressive disorder, recurrent, severe with psychotic symptoms (principal); F10.230 Alcohol dependence with withdrawal, uncomplicated; F41.9 Anxiety disorder, unspecified; G47.00 Insomnia, unspecified; I10 Essential (primary) hypertension; R45.851 Suicidal ideations; Z59.0 Homelessness; Y90.9 Presence of alcohol in blood, level not specified

== ENCOUNTER 2018-08-27 21:23 | Emergency (ER) | payer MEDICAID ==
[2018-08-27 21:24] VITALS: BMI 23.6
[2018-08-27 21:56] VITALS: RESP 20
--- NOTE | 2018-08-27 22:59 | C.PDOC ---
History Of Present Illness 52 year old male brought in via EMS after being found intoxicated at [facility] facility. Patient reports he recently got out of rehab 2 days ago. Time Seen by Provider: 08/27/18 22:56 Chief Complaint (Nursing): Substance Abuse History Per: Patient, EMS History/Exam Limitations: no limitations Onset/Duration Of Symptoms: Hrs Current Symptoms Are (Timing): Still Present Suicide/Self Injury Attempted (Context): None Recent travel outside of the [place]: No Past Medical History Reviewed: Historical Data, Nursing Documentation, Vital Signs Vital Signs: Last Vital Signs Temp 97.9 F 08/27/18 21:44 Pulse 108 H 08/27/18 21:44 Resp 20 08/27/18 21:44 BP 148/95 H 08/27/18 21:44 Pulse Ox 98 08/27/18 21:44 Primary Care Provider: Suzanne Griffin - Medical History PMH: Anxiety, Depression, Fractures (Right hip/hand and facial fracture due to fall), HTN, Pneumonia, TIA Denies: Alzheimer's Disease, Anemia, Arthritis, Asthma, Bipolar Disorder, Bronchitis, Cardia Arrhythmia, CHF, COPD, Crohn's Disease, Dementia, Diabetes, Diverticulitis, Emphysema, Fibromyalgia, Gastrointestinal Ulcer, Gall Bladder Disease, Hepatitis, HIV, Hypercholesterolemia, Hyperthyroidism, Hypothyroidism, Kidney Stones, Migraine, Mitral Valve Prolapse, Osteoporosis, Pancreatitis, Paranoia, Parkinson's Disease, Peripheral Edema, Post Traumatic Stress Disorder, Chronic Kidney Disease, Schizophrenia, Seizures, Sickle Cell Disease, Sexually Transmitted Disease, Sleep Apnea Surgical History: Denies: Appendectomy, Cholecystectomy, Coronary Stent, Pacemaker - [facility] (02/03/18) INDIVIDUAL PSYCHOTHERAPY, SUPPORTIVE (07/21/18) INJECT/INFUSE NEC (09/25/12) TETANUS TOXOID ADMINIST (04/01/04) VACCINATION NEC (11/23/13) Family History: States: Unknown Family Hx - Social History Hx Tobacco Use: No Hx Alcohol Use: Yes Hx Substance Use: Yes - Immunization History Hx Tetanus Toxoid Vaccination: No Hx Influenza Vaccination: No Hx Pneumococcal Vaccination: No Review Of Systems Constitutional: Negative for: Fever, Chills Cardiovascular: Negative for: Chest Pain, Palpitations Respiratory: Negative for: Cough, Shortness of Breath Gastrointestinal: Negative for: Nausea, Vomiting Neurological: Negative for: Weakness, Numbness Physical Exam - Physical Exam Appears: Non-toxic, Other (Foul smelling, disheveled, arousable) Skin: Normal Color, Warm Head: Atraumatic, Normacephalic Oral Mucosa: Moist Chest: Symmetrical, No Tenderness Cardiovascular: Rhythm Regular Respiratory: Normal Breath Sounds, No Rales, No Rhonchi, No Wheezing Gastrointestinal/Abdominal: Soft, No Tenderness Neurological/Psych: Oriented x3, Normal Speech Gait: Steady ED Course And Treatment O2 Sat by Pulse Oximetry: 98 (Room air) Pulse Ox Interpretation: Normal Medical Decision Making Medical Decision Making: alcohol abuse Disposition Doctor Will See Patient In The: Office Counseled Patient/Family Regarding: Studies Performed, Diagnosis - Disposition Referrals: Alcoholics Anonymous [Outside] [facility] [Outside] [facility] [Outside] [facility] [Outside] Disposition: HOME/ ROUTINE Disposition Time: 22:58 Condition: GOOD Additional Instructions: continue outpatient resources for alcohol abuse issues Instructions: Alcohol Abuse and Alcoholism (DC) Forms: [facility] ([place]) - Clinical Impression Clinical Impression: Alcohol abuse - Scribe Statement The provider has reviewed the documentation as recorded by the Scribobi Iniguez All medical record entries made by the Scribe were at my direction and personally dictated by me. I have reviewed the chart and agree that the record a ccurately reflects my personal performance of the history, physical exam, medical decision making, and the department course for this patient. I have also personally directed, reviewed, and agree with the discharge instructions and disposition.
[2018-08-27 23:44] VITALS: BP 142/71; PULSE 89; TEMP 98.1
[2018-08-28 00:01] VITALS: O2SAT 98
== END 2018-08-27 23:44 | disposition home or self-care (01) ==
LOC: C.ER 21:23
DX: F10.10 Alcohol abuse, uncomplicated (principal); Y90.9 Presence of alcohol in blood, level not specified